=== PATIENT | male | born 1980 | race American Indian/Alaskan Native ===

== ENCOUNTER 2018-09-11 16:23 | Emergency (ER) | payer SELFPAY ==
--- NOTE | 2018-09-11 18:32 | XRay Report ---
PROCEDURE: XR CHEST ROUTINE 2V TECHNIQUE: PA and lateral chest radiographs were obtained. HISTORY: Chest Pain COMPARISONS: None. FINDINGS: Heart: Normal. Mediastinum/Vessels: Normal. Lungs/Pleural space: Normal. Bony thorax: No acute osseous abnormality. IMPRESSION: Normal examination. This document is electronically signed by Bravo Miranda MD., September 11 2018 06:30:21 PM ET
[2018-09-11] MEDS ORDERED: IBUPROFEN PO ONE (18:35)
[2018-09-11 18:37] LABS: Basophils % (Auto) 0.6 % (0.0-1.8); Eosinophils # (Auto) 0.2 K/mm3 (0.0-0.4); Eosinophils % (Auto) 2.8 % (0.0-4.3); Hematocrit 40.3 % (35.5-45.6); Hemoglobin 13.3 gm/dl (11.8-15.2); Lymphocytes # (Auto) 2.2 K/mm3 (1.2-5.4); Mean Corpuscular HGB Conc 33 % (32-34); Mean Corpuscular Volume 74 fl (84-94); Monocytes # (Auto) 0.4 K/mm3 (0.0-0.8); Platelet Count 209 K/mm3 (140-440); Red Blood Count 5.42 M/mm3 (3.65-5.03); Red Cell Distribution Width 16.8 % (13.2-15.2)
[2018-09-11 18:50] VITALS: BP 130/85
[2018-09-11 19:02] LABS: Alanine Aminotransferase 21 units/L (7-56); Albumin 4.2 g/dL (3.9-5); BUN/Creatinine Ratio 20; Blood Urea Nitrogen 20 mg/dL (9-20); Calcium 8.7 mg/dL (8.4-10.2); Hemolysis Index 6
--- NOTE | 2018-09-11 20:15 | Emergency Department Report ---
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 MD Complaint: chest pain Onset/Timin -: week(s) Onset: during rest, during exertion Pain Location: substernal, left chest Pain Radiation: none Severity: moderate Severity scale (0 -10): 8 Quality: sharp Consistency: intermittent Improves With: rest Worsens With: exertion, inspiration, palpation, movement re: denies: nausea, vomting, diaphoresis, dyspnea, sense of impending doom Other Symptoms: cough. denies: fever, syncope, rash, acid taste in mouth, leg swelling, palpitations, burping Treatments Prior to Arrival: none Aspirin use within the Past 7 Days: (0) No - Related Data Previous Rx's Medication Instructions Recorded Last Taken Type Ibuprofen [Motrin 800 MG tab] 800 mg PO Q8HR PRN #30 tablet 09/11/18 Unknown Rx Allergies Allergy/AdvReac Type Severity Reaction Status Date / Time No Known Allergies Allergy Unverified 09/11/18 18:34 Heart Score - HEART Score History: Slightly suspicious EKG: Normal Age: < 45 Risk factors: No known risk factors Troponin: < normal limit HEART Score: 0 ED Review of Systems ROS: Stated complaint: CHEST PAIN/HEADACHE Other details as noted in HPI Constitutional: denies: chills, fever Eyes: denies: eye pain, eye discharge, vision change ENT: ear pain, throat pain, congestion Respiratory: cough. denies: shortness of breath, wheezing Cardiovascular: chest pain (with cough ) Endocrine: no symptoms reported Gastrointestinal: denies: abdominal pain, nausea, vomiting, diarrhea, constipation Genitourinary: denies: urgency, dysuria Musculoskeletal: back pain (left flank pain to inspiration no ). denies: joint swelling, arthralgia Skin: denies: rash, lesions Neurological: denies: headache, weakness, paresthesias Psychiatric: denies: anxiety, depression Hematological/Lymphatic: denies: easy bleeding, easy bruising ED Past Medical Hx - Past Medical History Previous Medical History?: No Hx Hypertension: No Hx CVA: No Hx Heart Attack/AMI: No Hx Congestive Heart Failure: No Hx Diabetes: No Hx Deep Vein Thrombosis: No Hx Pulmonary Embolism: No Hx GERD: No Hx Liver Disease: No Hx Renal Disease: No Hx of Cancer: No Hx Sickle Cell Disease: No Hx Arthritis: No Hx Headaches / Migraines: No Hx Seizures: No Hx Kidney Stones: No Hx Psychiatric Treatment: No Hx Asthma: No Hx COPD: No Hx Tuberculosis: No Hx Dementia: No Hx HIV: No - Surgical History Past Surgical History?: Yes Hx Coronary Stent: No Hx Open Heart Surgery: No Hx Pacemaker: No Hx Internal Defibrillator: No Hx Cholecystectomy: No Hx Appendectomy: No Hx Breast Surgery: No Additional Surgical History: lympth node removal - Social History Smoking Status: Current Every Day Smoker Substance Use Type: Alcohol - Medications Home Medications: Home Medications Medication Instructions Recorded Confirmed Last Taken Type Ibuprofen [Motrin 800 MG tab] 800 mg PO Q8HR PRN #30 tablet 09/11/18 Unknown Rx ED Physical Exam - General Limitations: No Limitations General appearance: alert, in no apparent distress - Head Head exam: Present: atraumatic, normocephalic, normal inspection - Eye Eye exam: Present: normal appearance, PERRL, EOMI. Absent: conjunctival injection, nystagmus Pupils: Present: normal accommodation - ENT ENT exam: Present: normal exam, normal orophraynx, mucous membranes moist, TM's normal bilaterally, normal external ear exam - Neck Neck exam: Present: normal inspection, full ROM. Absent: tenderness, meningismus, lymphadenopathy, thyromegaly - Respiratory Respiratory exam: Present: normal lung sounds bilaterally, chest wall tenderness (left latera chest wall tenderness no swelling no ecchmisos no deformity ). Absent: respiratory distress, wheezes, rales, rhonchi, stridor - Cardiovascular Cardiovascular Exam: Present: regular rate, normal rhythm. Absent: normal heart sounds, systolic murmur, diastolic murmur, rubs, gallop - GI/Abdominal GI/Abdominal exam: Present: soft, normal bowel sounds, hyperactive bowel sounds. Absent: distended, tenderness, guarding, rebound, rigid - Rectal Rectal exam: Present: deferred - Extremities Exam Extremities exam: Present: normal inspection - Back Exam Back exam: Present: normal inspection, full ROM, muscle spasm, paraspinal tenderness (mild paraspinus muscle tenderness to deep palpation. ). Absent: tenderness, CVA tenderness (R), CVA tenderness (L), vertebral tenderness, other (left flank tendernss ) - Neurological Exam Neurological exam: Present: alert, oriented X3, CN II-XII intact, normal gait, reflexes normal. Absent: motor sensory deficit - Psychiatric Psychiatric exam: Present: normal affect, normal mood. Absent: manic - Skin Skin exam: Present: warm, dry, intact, normal color. Absent: rash ED Course Vital Signs 09/11/18 09/11/18 16:34 18:49 Temperature 98.3 F 98.8 F Pulse Rate 80 68 Respiratory 18 16 Rate Blood Pressure 114/73 130/85 [Right] O2 Sat by Pulse 100 100 Oximetry SEBASTIÁN score - Sebastián Score Age > 65: (0) No Aspirin use within the Past 7 Days: (0) No 3 or more CAD Risk Factors: (0) No 2 or more Angina events in past 24 hrs: (0) No Known CAD with more than 50% Stenosis: (0) No Elevated Cardiac Markers: (0) No ST Deviation Greater than 0.5mm: (0) No SEBASTIÁN Score: 0 ED Medical Decision Making - Lab Data Result diagrams: 09/11/18 18:20 09/11/18 18:20 Labs 09/11/18 09/11/18 18:20 18:20 WBC 5.9 RBC 5.42 H Hgb 13.3 Hct 40.3 MCV 74 L MCH 25 L MCHC 33 RDW 16.8 H Plt Count 209 Lymph % (Auto) 37.0 H Bremer % (Auto) 7.0 Eos % (Auto) 2.8 Baso % (Auto) 0.6 Lymph # 2.2 Bremer # 0.4 Eos # 0.2 Baso # 0.0 Seg Neutrophils % 52.6 Seg Neutrophils # 3.1 Sodium 136 L Potassium 4.0 Chloride 98.0 Carbon Dioxide 25 Anion Gap 17 BUN 20 Creatinine 1.0 Estimated GFR > 60 BUN/Creatinine Ratio 20 Glucose 96 Calcium 8.7 Total Bilirubin 1.00 AST 30 ALT 21 Alkaline Phosphatase 50 Troponin T < 0.010 Total Protein 6.9 Albumin 4.2 Albumin/Globulin Ratio 1.6 - EKG Data Rate: normal - Radiology Data Radiology results: report reviewed, image reviewed Ordering Physician: TRACEE HERNANDEZ Date of Service: 09/11/18 Procedure(s): XR chest routine 2V Accession Number(s): [id number] cc: TRACEE HERNANDEZ Fluoro Time In Minutes: PROCEDURE: XR CHEST ROUTINE 2V TECHNIQUE: PA and lateral chest radiographs were obtained. HISTORY: Chest Pain COMPARISONS: None. FINDINGS: Heart: Normal. Mediastinum/Vessels: Normal. Lungs/Pleural space: Normal. Bony thorax: No acute osseous abnormality. IMPRESSION: Normal examination. This document is electronically signed by Bravo Sow MD., September 11 2018 06:30:21 PM ET Transcribed By: RIVAS Dictated By: MARTINA SOW MD Electronically Authenticated By: MARTINA SOW MD Signed Date/Time: 09/11/181831 DD/ 58 TD/TT: 09/11/181758 - Medical Decision Making heart scroe is 0, SEBASTIÁN score is 0, cxr: normal ,pt with no acute istress from pain exacerbated by cough is no dysuria hematuria is no fever no chills no nausea vomiting no shortness of breath or wheezing planned his finances and pain following a PCP in 2-3 days patient Has been managed in addition plan will be DC'd home in stable condition at this time Critical care attestation.: If time is entered above; I have spent that time in minutes in the direct care of this critically ill patient, excluding procedure time. ED Disposition Clinical Impression: Chest wall pain Chest pain Qualifiers: Chest pain type: chest pain on breathing Qualified Code(s): R07.1 - Chest pain on breathing; R07.81 - Pleurodynia Disposition: DC-01 TO HOME OR SELFCARE Is pt being admited?: No Does the pt Need Aspirin: No Condition: Stable Instructions: Chest Pain (ED), Costochondritis (ED) Prescriptions: Ibuprofen [Motrin 800 MG tab] 800 mg PO Q8HR PRN #30 tablet PRN Reason: Pain , Severe (7-10) Referrals: COLT PERRY MD [Staff Physician] - 3-5 Days Forms: Work/School Release Form(ED) Time of Disposition: 20:12
== END 2018-09-11 20:55 | disposition home or self-care (01) ==
LOC: ED 16:23
DX: R07.89 Other chest pain (principal); R07.81 Pleurodynia
CPT/HCPCS: 36415; 71046; 80053; 84484; 85025; 93005; 93010; 99283

== ENCOUNTER 2018-09-13 07:59 | Inpatient (IN) | payer MEDICARE, OTHER, MEDICAID ==
[2018-09-13] MEDS ORDERED: NITRO-BID 2% TP ONE (10:20)
[2018-09-13] MEDS ORDERED: ASPIRIN PO ONE (10:21)
--- NOTE | 2018-09-13 10:27 | Emergency Department Report ---
HPI - General Chief Complaint: Chest Pain Time Seen by Provider: 09/13/18 10:07 - HPI HPI: Room 8 The patient is a 38-year-old male presenting with a chief complaint of chest pain. The patient states he's had intermittent left-sided chest pain since . The patient states he came to this ED for evaluation of symptoms began but eloped prior to discharge. He states the pain is continued to be intermittent. Patient states he got into a disagreement with his girlfriend and the pain returned. Patient states he became diaphoretic but denies shortness of breath nausea or vomiting. Patient denies pleurisy states he recently traveled to [place] 2 weeks ago. Patient currently gives his pain a score of 2/10. Patient states she's never had a stress test or cardiac catheterization Location: Left chest Duration: Intermittent 3 days Quality: Sharp Severity: 2/10 Modifying factors: [see above] Context: [see above] Mode of transportation: [not driving] ED Past Medical Hx - Past Medical History Previous Medical History?: No Hx Pulmonary Embolism: Yes (2014 x 2) - Surgical History Past Surgical History?: Yes Additional Surgical History: lymph node removal - Family History Family history: no significant - Social History Smoking Status: Current Every Day Smoker (1/4 pack per day) Substance Use Type: Alcohol (occasional), Marijuana - Medications Home Medications: Home Medications Medication Instructions Recorded Confirmed Last Taken Type Ibuprofen [Motrin 800 MG tab] 800 mg PO Q8HR PRN #30 tablet 09/11/18 Unknown Rx ED Review of Systems ROS: Stated complaint: CHEST PAIN Other details as noted in HPI Constitutional: diaphoresis Eyes: denies: eye pain ENT: denies: throat pain Respiratory: no symptoms reported Cardiovascular: chest pain Endocrine: no symptoms reported Gastrointestinal: denies: nausea, vomiting Genitourinary: denies: dysuria Musculoskeletal: denies: back pain Neurological: denies: headache Physical Exam - Physical Exam Vital Signs: Vital Signs 09/13/18 08:36 Temperature 98.6 F Pulse Rate 77 Respiratory 18 Rate Blood Pressure 126/89 O2 Sat by Pulse 98 Oximetry Physical Exam: GENERAL: The patient is well-developed well-nourished male lying on stretcher n ot appearing to be in acute distress. [] HEENT: Normocephalic. Atraumatic. Extraocular motions are intact. Patient has moist mucous membranes. NECK: Supple. Trachea midline CHEST/LUNGS: Clear to auscultation. There is no respiratory distress noted. HEART/CARDIOVASCULAR: Regular. There is no tachycardia. There is no gallop or murmur. There is no pericardial friction rub auscultated when patient leans forward ABDOMEN: Abdomen is soft, nontender. Patient has normal bowel sounds. There is no abdominal distention. SKIN: There is no rash. There is no edema. There is no diaphoresis. NEURO: The patient is awake, alert, and oriented. The patient is cooperative. The patient has no focal neurologic deficits. The patient has normal speech MUSCULOSKELETAL:There is no evidence of acute injury. ED Course Vital Signs 09/13/18 08:36 Temperature 98.6 F Pulse Rate 77 Respiratory 18 Rate Blood Pressure 126/89 O2 Sat by Pulse 98 Oximetry ED Medical Decision Making - Lab Data Result diagrams: 09/13/18 Unknown 09/13/18 Unknown Laboratory Tests 09/13/18 09/13/18 09/13/18 10:33 Unknown Unknown WBC 4.3 L RBC 5.48 H Hgb 13.2 Hct 41.1 MCV 75 L MCH 24 L MCHC 32 RDW 17.6 H Plt Count 221 Lymph % (Auto) 31.6 Sheridan % (Auto) 6.9 Eos % (Auto) 4.1 Baso % (Auto) 0.7 Lymph # 1.4 Sheridan # 0.3 Eos # 0.2 Baso # 0.0 Seg Neutrophils % 56.7 Seg Neutrophils # 2.4 D-Dimer 151.37 Sodium 140 Potassium 3.7 Chloride 104.1 Carbon Dioxide 26 Anion Gap 14 BUN 14 Creatinine 1.0 Estimated GFR > 60 BUN/Creatinine Ratio 14 Glucose 96 Calcium 8.9 Total Creatine Kinase 406 H CK-MB (CK-2) 3.9 CK-MB (CK-2) Rel Index 0.9 Troponin T < 0.010 NT-Pro-B Natriuret Pep 34.73 - EKG Data -: EKG Interpreted by Me EKG shows normal: sinus rhythm Rate: normal - EKG Data When compared to previous EKG there are: previous EKG unavailable Interpretation: nonspecific ST-T wave pat (diffuse ST elevation likely early repolarization. T-wave inversion in lead V2. Biphasic T-wave in lead aVL) - Radiology Data Radiology results: image reviewed (chest x-ray) interpreted by me: Chest x-ray-no focal infiltrates, no pneumothorax - Differential Diagnosis ACS, PE, pericarditis, GERD, anxiety Critical care attestation.: If time is entered above; I have spent that time in minutes in the direct care of this critically ill patient, excluding procedure time. ED Disposition Clinical Impression: Chest pain Disposition: OP ADMIT IP TO THIS HOSP Is pt being admited?: Yes Does the pt Need Aspirin: Yes Condition: Fair Instructions: Chest Pain (ED) Referrals: RAY ALMEIDABATON ROUGE MD YEYO [Primary Care Provider] - 3-5 Days Time of Disposition: 11:45 (hospitalist notified (Dr Ortiz)) SEBASTIÁN score - Sebastián Score Age > 65: (0) No Aspirin use within the Past 7 Days: (0) No 3 or more CAD Risk Factors: (0) No 2 or more Angina events in past 24 hrs: (1) Yes Known CAD with more than 50% Stenosis: (0) No Elevated Cardiac Markers: (0) No ST Deviation Greater than 0.5mm: (0) No SEBASTIÁN Score: 1
[2018-09-13 10:29] LABS: Basophils % (Auto) 0.7 % (0.0-1.8); Eosinophils # (Auto) 0.2 K/mm3 (0.0-0.4); Eosinophils % (Auto) 4.1 % (0.0-4.3); Hematocrit 41.1 % (35.5-45.6); Hemoglobin 13.2 gm/dl (11.8-15.2); Lymphocytes # (Auto) 1.4 K/mm3 (1.2-5.4); Lymphocytes % (Auto) 31.6 % (13.4-35.0); Mean Corpuscular HGB Conc 32 % (32-34); Mean Corpuscular Volume 75 fl (84-94); Monocytes # (Auto) 0.3 K/mm3 (0.0-0.8); Monocytes % (Auto) 6.9 % (0.0-7.3); Platelet Count 221 K/mm3 (140-440); Red Blood Count 5.48 M/mm3 (3.65-5.03); Red Cell Distribution Width 17.6 % (13.2-15.2)
[2018-09-13 10:47] LABS: Creatine Kinase MB 3.9 ng/mL (0.0-4.0)
[2018-09-13 10:48] LABS: BUN/Creatinine Ratio 14; Blood Urea Nitrogen 14 mg/dL (9-20); Calcium 8.9 mg/dL (8.4-10.2); Hemolysis Index 5
--- NOTE | 2018-09-13 11:46 | History and Physical Report ---
History of Present Illness Chief complaint: My chest is hurting again History of present illness: 38 YO Male with Nicotine Dependence, PE not on Anticoagulation. Pt states that he experienced a sudden onset of pain in his chest 2 days ago. Pt presented to ED at that time, but left prior to discharge. Pt returns today with persistent symptoms. Pt states taht pain is 2-6/10, intermittent, substernal, nonradiating, not worsened with exertion, not relieved with rest, associated with decreased exercise tolerance, dypsnea with exertion. EMS notified, and patient transported to [facility]. Pt seen and evaluated in ED and found to have symptoms consistent with Angina as well as CHF Decompensation. Pt denies fever, chills, palpitations, NVD, Trauma, productive cough, BRBPR, prolonged travel/immobility, unilateral leg swelling, calf pain, skin rash, or recent ill contacts. Pt admitted to telemetry. Cardiology consulted in ED. No prior admission for review. All listed medication reconciled at time of admission. Past History Past Medical History: pulmonary embolism, other (Nicotine Dependence) Past Surgical History: Other (Lymnph node excision) Social history: single, lives with family, smoking Family history: hypertension Medications and Allergies Allergies Allergy/AdvReac Type Severity Reaction Status Date / Time No Known Allergies Allergy Unverified 09/11/18 18:34 Home Medications Medication Instructions Recorded Confirmed Last Taken Type Ibuprofen [Motrin 800 MG tab] 800 mg PO Q8HR PRN #30 tablet 09/11/18 Unknown Rx Review of Systems Constitutional: no weight loss, no weight gain, no fever, no chills Ears, nose, mouth and throat: no ear pain, no ear discharge, no tinnitis, no decreased hearing Cardiovascular: chest pain, shortness of breath, dyspnea on exertion, decreased exercise tolerance, no palpitations, no rapid/irregular heart beat, no syncope Respiratory: no cough, no cough with sputum, no excessive sputum, no hemoptysis Gastrointestinal: no nausea, no vomiting, no diarrhea, no constipation Genitourinary Male: no hematuria, no flank pain, no discharge, no urinary frequency, no urinary hesitancy Rectal: no pain, no incontinence, no bleeding Musculoskeletal: no neck stiffness, no neck pain, no shooting arm pain, no arm numbness/tingling, no low back pain, no shooting leg pain Integumentary: no rash, no pruritis, no redness, no sores, no wounds Neurological: no paralysis, no weakness, no parathesias, no numbness, no tingling, no seizures, no syncope Psychiatric: no anxiety, no memory loss, no change in sleep habits, no sleep disturbances, no insomnia, no hypersomnia, no change in appetite, no change in libido Endocrine: no cold intolerance, no heat intolerance, no polyphagia, no excessive thirst, no polydipsia, no polyuria, no nocturia Hematologic/Lymphatic: no easy bruising, no easy bleeding, no lymphadenopathy, no lymphedema Allergic/Immunologic: no urticaria, no allergic rhinitis, no wheezing, no p ersistent infections, no anaphylaxis Exam - Constitutional Vitals: Temp Pulse Resp BP Pulse Ox 98.6 F 58 L 16 143/90 97 09/13/18 08:36 09/13/18 10:59 09/13/18 10:23 09/13/18 10:59 09/13/18 10:23 General appearance: Present: mild distress - EENT Eyes: Present: PERRL ENT: hearing intact, clear oral mucosa - Neck Neck: Present: supple, normal ROM - Respiratory Respiratory effort: normal Respiratory: bilateral: CTA - Cardiovascular Heart Sounds: Present: S1 & S2. Absent: rub, click - Extremities Extremities: pulses symmetrical, No edema Peripheral Pulses: within normal limits - Abdominal General gastrointestinal: Present: soft, non-tender, non-distended, normal bowel sounds Male genitourinary: Present: normal - Integumentary Integumentary: Present: clear, warm, dry - Musculoskeletal Musculoskeletal: gait normal, strength equal bilaterally - Psychiatric Psychiatric: appropriate mood/affect, intact judgment & insight - Neurologic Neurologic: CNII-XII intact, moves all extremities Results - Labs CBC & Chem 7: 09/13/18 Unknown 09/13/18 Unknown Labs: Abnormal lab results 09/13/18 09/13/18 Range/Units Unknown Unknown WBC 4.3 L (4.5-11.0) K/mm3 RBC 5.48 H (3.65-5.03) M/mm3 MCV 75 L (84-94) fl MCH 24 L (28-32) pg RDW 17.6 H (13.2-15.2) % Total Creatine Kinase 406 H (55-170) units/L Assessment and Plan - Patient Problems (1) Diastolic CHF Current Visit: Yes Status: Acute Qualifiers: Heart failure chronicity: acute Qualified Code(s): I50.31 - Acute diastolic (congestive) heart failure Plan to address problem: CHF Protocol:Admit to telemetry, cardiology consulted in ED, Cardiac diet, strict I/O, daily weight, afterload reduction, monitor uop q shift, blood pressure control, thyroid panel, magnesium level. Echo, BNP, (2) Angina at rest Current Visit: Yes Status: Acute Plan to address problem: Admit to telemetry, serial cardiac enzymes, ekg, stress test, cardiology consulted in ED, morphine, supplemental oxygen, nitro, aspirin, pulse oximetry, d dimer. (3) Nicotine dependence with withdrawal Current Visit: Yes Status: Acute Qualifiers: Nicotine product type: cigarettes Qualified Code(s): F17.213 - Nicotine de pendence, cigarettes, with withdrawal Plan to address problem: Smoking cessation counseling, supportive care. (4) DVT prophylaxis Current Visit: Yes Status: Acute Plan to address problem: SCD to BLE while in bed, prophylactic lovenox
[2018-09-13] MEDS ORDERED: TYLENOL PO PRN (11:50)
[2018-09-13] MEDS ORDERED: ZOFRAN IV PRN (11:50)
[2018-09-13] MEDS ORDERED: BABY ASPIRIN PO STA (11:50)
[2018-09-13] MEDS ORDERED: SODIUM CHLORIDE FLUSH SYRINGE 10 ML IV PRN ×2 (11:50)
[2018-09-13] MEDS ORDERED: PROVENTIL IH PRN (12:00)
[2018-09-13] MEDS ORDERED: MORPHINE IV PRN (12:00)
[2018-09-13] MEDS ORDERED: NITROSTAT SL PRN (12:00)
[2018-09-13 12:50] LABS: Free T4 (Free Thyroxine) 1.05 ng/dL (0.76-1.46)
--- NOTE | 2018-09-13 13:18 | XRay Report ---
PROCEDURE: XR CHEST 1V AP TECHNIQUE: Chest, portable upright HISTORY: chest pain COMPARISON: 09/11/2018 FINDINGS: There is mild dextroconvex thoracic scoliosis. The heart size is normal. There is no pulmonary vascular congestion seen. Mediastinal contours are normal. Lungs are clear. There is no pleural effusion seen. There is no pneumothorax seen. IMPRESSION: No acute abnormality identified. This document is electronically signed by Faith White MD., September 13 2018 01:16:15 PM ET
[2018-09-13] MEDS ORDERED: IBUPROFEN PO PRN (19:46)
[2018-09-13 20:43] LABS: Chol/HDL Ratio 2.13 %
[2018-09-13] MEDS ORDERED: LOVENOX SUB-Q SCH (22:00)
[2018-09-14] MEDS: SODIUM CHLORIDE FLUSH SYRINGE 10 ML IV SCH ×2 (01:00→01:22)
[2018-09-14 13:54] VITALS: BP 125/76
--- NOTE | 2018-09-14 14:08 | Consultation ---
History of Present Illness Consult date: 09/14/18 Consult reason: chest pain History of present illness: The patient is a 38-year-old man admitted to the hospital with atypical, poorly characterized, nonexertional chest pain. EKG in the emergency room normal sinus rhythm normal ECG with no ischemic changes. Chest x-ray was normal cardiac silhouette and clear lungs. Serial troponin levels were normal. Today, he underwent exercise stress test in August which he exercised for 9 minutes of a Los protocol, there was no chest pain and no ST changes of ischemia. Thallium images are negative, no defects are identified. The thallium stress test was normal. Patient has a past medical history of pulmonary embolism, which he states occurred in 2012. He was taken off oral anticoagulation sometime after that, has had no recurrent venous thromboembolism since then. Past History Past Medical History: pulmonary embolism, other (Nicotine Dependence) Past Surgical History: Other (Lymnph node excision) Social history: single, lives with family, smoking Family history: hypertension Medications and Allergies Allergies Allergy/AdvReac Type Severity Reaction Status Date / Time No Known Allergies Allergy Unverified 09/11/18 18:34 Home Medications Medication Instructions Recorded Confirmed Last Taken Type Ibuprofen [Motrin 800 MG tab] 800 mg PO Q8HR PRN #30 tablet 09/11/18 09/14/18 Unknown Rx Active Meds: Active Medications Acetaminophen (Tylenol) 650 mg PO Q4H PRN PRN Reason: Pain MILD(1-3)/Fever >100.5/GUTIERREZ Last Admin: 09/13/18 22:58 Dose: 650 mg Documented by: Albuterol (Proventil) 2.5 mg IH Q4HRT PRN PRN Reason: Shortness Of Breath Enoxaparin Sodium (Lovenox) 40 mg SUB-Q QDAY@2200 MANI Last Admin: 09/13/18 22:58 Dose: 40 mg Documented by: Ibuprofen (Ibuprofen) 800 mg PO Q8HR PRN PRN Reason: Pain , Severe (7-10) Morphine Sulfate (Morphine) 2 mg IV Q4H PRN PRN Reason: Pain, Moderate (4-6) Nitroglycerin (Nitrostat) 0.4 mg SL Q5M PRN PRN Reason: Chest Pain Ondansetron HCl (Zofran) 4 mg IV Q8H PRN PRN Reason: Nausea And Vomiting Sodium Chloride (Sodium Chloride Flush Syringe 10 Ml) 10 ml IV BID MANI Last Admin: 09/14/18 01:22 Dose: 10 ml Documented by: Sodium Chloride (Sodium Chloride Flush Syringe 10 Ml) 10 ml IV PRN PRN PRN Reason: LINE FLUSH Sodium Chloride (Sodium Chloride Flush Syringe 10 Ml) 10 ml IV PRN PRN PRN Reason: LINE FLUSH Physical Examination Vital Signs Temp Pulse Resp BP Pulse Ox 98.6 F 77 18 126/89 98 09/13/18 08:36 09/13/18 08:36 09/13/18 08:36 09/13/18 08:36 09/13/18 08:36 Results 09/13/18 Unknown 09/13/18 Unknown Lipids 09/13/18 Range/Units Unknown Triglycerides 80 (2-149) mg/dL Cholesterol 141 (50-199) mg/dL HDL Cholesterol 66 H (40-59) mg/dL Cholesterol/HDL Ratio 2.13 % EKG interpretations - Telemetry EKG Rhythm: Sinus Rhythm Assessment and Plan - Patient Problems (1) Chest pain Current Visit: Yes Status: Acute Plan to address problem: Patient was admitted with atypical chest pain, ECGs and serial cardiac enzymes were negative. He underwent an exercise thallium stress test which was also negative. No further cardiac chest pain evaluation is indicated.
--- NOTE | 2018-09-14 16:00 | Discharge Summary ---
Providers - Providers Date of Admission: 09/13/18 13:49 Attending physician: JACOB BEVERLY MD 09/13/18 Consult to Cardiac Rehabilitation [CONS] Routine Reason For Exam: Phase I 09/13/18 11:50 Consult to Physician [CONS] Routine Comment: Consulting Provider: PAYAL BOWDEN Physician Instructions: Reason For Exam: angina Primary care physician: ANTHONY BELL MD Hospitalization Condition: Fair Hospital course: 38M who presents with Chest pain chest pain -stress test neg, no further w/o per cardiology hx of PE -d dimer neg Disposition: DC/[facility] Time spent for discharge: 33 minutes Core Measure Documentation - Palliative Care Palliative Care/ Comfort Measures: Not Applicable - Core Measures Any of the following diagnoses?: none Exam - Constitutional Vitals: Temp Pulse Resp BP Pulse Ox 97.8 F 57 L 18 125/76 99 09/14/18 07:54 09/14/18 10:00 09/14/18 07:54 09/14/18 11:31 09/14/18 14:34 General appearance: Present: no acute distress, well-nourished - EENT Eyes: Present: PERRL ENT: hearing intact, clear oral mucosa - Neck Neck: Present: supple, normal ROM - Respiratory Respiratory effort: normal Respiratory: bilateral: CTA - Cardiovascular Heart Sounds: Present: S1 & S2. Absent: rub, click - Extremities Extremities: pulses symmetrical, No edema Peripheral Pulses: within normal limits - Abdominal General gastrointestinal: Present: soft, non-tender, non-distended, normal bowel sounds Male genitourinary: Present: normal - Integumentary Integumentary: Present: clear, warm, dry - Musculoskeletal Musculoskeletal: gait normal, strength equal bilaterally - Psychiatric Psychiatric: appropriate mood/affect, intact judgment & insight - Neurologic Neurologic: CNII-XII intact, moves all extremities Plan Follow up with: ANTHONY SPARKS MD [Primary Care Provider] - 3-5 Days
--- NOTE | 2018-09-15 00:20 | Treadmill Report ---
THALLIUM STRESS TEST LEFT VENTRICLE: Left ventricular chamber size is within normal limits. Perfusion study demonstrates homogeneous uptake of the tracer in all segments, no significant perfusion defects identified. Gated analysis demonstrates well preserved left ventricular systolic function, ejection fraction 54%. CONCLUSION: Normal myocardial perfusion study. JOB# [id number] CA/NTS
== END 2018-09-14 17:10 | DRG 313 ==
LOC: ED 07:59 → 4A 13:49
PROVIDERS: ADMIT Internal Medicine; ATTEND Internal Medicine
DX: R07.89 Other chest pain (principal); I50.31 Acute diastolic (congestive) heart failure; F17.213 Nicotine dependence, cigarettes, with withdrawal; F12.90 Cannabis use, unspecified, uncomplicated; Z86.711 Personal history of pulmonary embolism; Z82.49 Family history of ischemic heart disease and other diseases of the circulatory system; Z71.6 Tobacco abuse counseling; Z72.89 Other problems related to lifestyle
CPT/HCPCS: 36415; 71045; 78452; 80048; 80061; 82550; 82553; 83735; 83880; 84439; 84443; 84484; 85025; 85379; 93005; 93010; 93017; 93306; 99406; G0378; A9502; J1650